=== PATIENT | female | born 2000 | race Caucasian/White ===

== ENCOUNTER 2021-08-18 06:33 | Emergency (ER) | payer MEDICAID ==
[2021-08-18] MEDS ORDERED: Ketorolac 30 MG/ML SDV IM ONE (07:19)
[2021-08-18] MEDS ORDERED: predniSONE 20 MG Tab PO ONE (07:19)
[2021-08-18] MEDS ORDERED: Sulfamethoxazole/Trimethoprim 800-160 MG Tab PO ONE (07:23)
--- NOTE | 2021-08-18 07:24 | EDM.PDOC ---
ED HPI GENERAL MEDICAL PROBLEM - General Stated Complaint: EARACHE Time Seen by Provider: 08/18/21 06:55 Source of Information: Reports: Patient History Limitations: Reports: No Limitations - History of Present Illness INITIAL COMMENTS - FREE TEXT/NARRATIVE: c/o L ear pain x 1w intermittent pain, then continuous pain for last 1-2 days not taken pain meds does not think she has allergies all does have nasal swell c/w chr allergic rhinitis denies rhinorrhea born 2m premature per mother who spoke with Mervat GONZÁLES h/o b/l tubes and freq OMs as child, no ear pain in past 2y PCP [facility] in [facility] where she is from college student, here with boyfriend - Related Data Allergies Allergy/AdvReac Type Severity Reaction Status Date / Time cefixime [From Suprax] Allergy Rash Verified 08/18/21 07:12 cefprozil [From Cefzil] Allergy Rash Verified 08/18/21 07:11 Home Meds: Home Meds .Melatonin 1 dose PO DAILY PRN 08/18/21 [History] FLUoxetine HCl [Fluoxetine HCl] 40 mg PO DAILY 08/18/21 [History] Loratadine 10 mg PO DAILY #30 tablet 08/18/21 [Rx] Sulfamethoxazole/Trimethoprim [Sulfamethoxazole-Tmp Ds Tablet] 1 each PO BID #14 tablet 08/18/21 [Rx] norgestimate-ethinyl estradioL [[place]-Linyah 28 Tablet] 1 each PO DAILY 08/18/21 [History] predniSONE 20 mg PO DAILY #6 tab 08/18/21 [Rx] ED ROS ENT - Review of Systems Review Of Systems: See Below Constitutional: Reports: No Symptoms HEENT: Reports: Ear Pain Respiratory: Reports: No Symptoms Endocrine: Reports: No Symptoms GI/Abdominal: Reports: No Symptoms : Reports: No Symptoms Musculoskeletal: Reports: No Symptoms Skin: Reports: No Symptoms Neurological: Reports: No Symptoms Psychiatric: Reports: No Symptoms Hematologic/Lymphatic: Reports: No Symptoms Immunologic: Reports: No Symptoms ED EXAM, ENT - Physical Exam Exam: See Below Exam Limited By: No Limitations General Appearance: Alert, WD/WN, No Apparent Distress Eye Exam: Bilateral Eye: Normal Inspection Ears: Other (R TM wnl, L TM partially obscured by soft wax in ear canal, normal pale color, mild bulge, no LNs, no pain with tug pinna/tragus on L) Nose: Other (30-40% swell turbinates b/l, no visible d/c, o-p neg) Mouth/Throat: Normal Inspection, Normal Gums, Normal Oropharynx Head: Atraumatic, Normocephalic Neck: Normal Inspection, Supple, Non-Tender, Full Range of Motion. No: Lymphadenopathy (L) Respiratory/Chest: No Respiratory Distress, Lungs Clear Cardiovascular: Regular Rate, Rhythm GI/Abdominal: Soft Extremities: Normal Inspection Neurological: Alert, Oriented, CN II-XII Intact, No Motor/Sensory Deficits Psychiatric: Normal Affect, Normal Mood Skin: Warm, Dry, Intact, Normal Color, No Rash Lymphatic: No Adenopathy Course - Vital Signs Last Recorded V/S: Last Vital Signs Temp 37.2 C 08/18/21 06:35 Pulse 65 08/18/21 06:35 Resp 18 08/18/21 06:35 BP 131/83 08/18/21 06:35 Pulse Ox 99 08/18/21 06:35 - Re-Assessments/Exams Free Text/Narrative Re-Assessment/Exam: 08/18/21 07:34 role of antbxs not clear as modest L ear effusion is not opaque and may be chronic should improve nicely with anti-inflammatories and steroids and antihistamines no evidence of perf should see PCP in 2w, may see ENT if desired Departure - Departure Time of Disposition: 07:18 Disposition: Home, Self-Care 01 Condition: Good Clinical Impression: Left otitis media with effusion, Chronic allergic rhinitis - Discharge Information *PRESCRIPTION DRUG MONITORING PROGRAM REVIEWED*: Not Applicable *COPY OF PRESCRIPTION DRUG MONITORING REPORT IN PATIENT TONNY: Not Applicable Prescriptions: Loratadine 10 mg PO DAILY #30 tablet predniSONE 20 mg PO DAILY #6 tab Sulfamethoxazole/Trimethoprim [Sulfamethoxazole-Tmp Ds Tablet] 1 each PO BID #14 tablet Instructions: Otitis Media, Adult, Allergic Rhinitis, Adult Additional Instructions: For infection, take sulfa antibiotic 2 times a day for 7 days. For swelling and allergies (which is keeping the Eustachion tube from adequately draining the middle ear to the back of the throat), take prednisone 20 mg daily for 6 days beginning tomorrow. For swelling and allergies, take loratadine 10 mg 1 tab daily for 1-2 months, until the first freeze. For pain, take ibuprofen 200 mg 4 tabs 3 times a day. See your doctor in 2 weeks, earlier if your symptoms persist. Sepsis Event Note (ED) - Focused Exam Vital Signs: Vital Signs Temp Pulse Resp BP Pulse Ox 08/18/21 06:35 37.2 C 65 18 131/83 99
== END 2021-08-18 07:45 | disposition home or self-care (01) ==
LOC: FB.ED 06:33
DX: H65.92 Unspecified nonsuppurative otitis media, left ear (principal); J30.9 Allergic rhinitis, unspecified; Z88.8 Allergy status to other drugs, medicaments and biological substances; Z79.899 Other long term (current) drug therapy
CPT/HCPCS: 96372; 99282; A9270; J1885; J7512

== ENCOUNTER 2021-08-25 21:49 | Emergency (ER) | payer MEDICAID ==
[2021-08-25] MEDS ORDERED: Ibuprofen 600 MG Tab PO ONE (22:25)
--- NOTE | 2021-08-25 22:34 | EDM.PDOC ---
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 The injury was 5 hrs ago. No tx prior to arrival. 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) R ankle Pain Score (Numeric/FACES): 10 - Related Data Allergies Allergy/AdvReac Type Severity Reaction Status Date / Time cefixime [From Suprax] Allergy Rash Verified 08/25/21 22:01 cefprozil [From Cefzil] Allergy Rash Verified 08/25/21 22:01 Home Meds: Home Meds .Melatonin 1 dose PO DAILY PRN 08/18/21 [History] FLUoxetine HCl [Fluoxetine HCl] 40 mg PO DAILY 08/18/21 [History] Loratadine 10 mg PO DAILY #30 tablet 08/18/21 [Rx] Sulfamethoxazole/Trimethoprim [Sulfamethoxazole-Tmp Ds Tablet] 1 each PO BID #14 tablet 08/18/21 [Rx] norgestimate-ethinyl estradioL [[place]-Linyah 28 Tablet] 1 each PO DAILY 08/18/21 [History] predniSONE 20 mg PO DAILY #6 tab 08/18/21 [Rx] Ibuprofen 600 mg PO QID PRN #12 tablet 08/25/21 [Rx] Past Medical History HEENT History: Reports: Other (See Below) Other HEENT History: History of left PE tubes, perforations, and infections. Respiratory History: Reports: Asthma Review of Systems - Review of Systems Review Of Systems: See Below Constitutional: Reports: No Symptoms Musculoskeletal: Reports: Joint Pain (R ankle) Skin: Reports: No Symptoms Neurological: Reports: No Symptoms ED EXAM, GENERAL - Physical Exam Exam: See Below Exam Limited By: No Limitations General Appearance: Alert, WD/WN, No Apparent Distress Extremities: Normal Inspection, Normal Range of Motion, No Pedal Edema, Other (Tender lateraly, no ligamentous laxity. No lateral foot pain. No medial joint pain. ). No: Non-Tender, Pedal Edema, Joint Swelling, Limited Range of Motion, Increased Warmth Neurological: Alert, Oriented, CN II-XII Intact, Normal Cognition, No Motor/Sensory Deficits Course - Vital Signs Last Recorded V/S: Last Vital Signs Temp 37.1 C 08/25/21 21:58 Pulse 87 08/25/21 21:58 Resp 18 08/25/21 21:58 BP 129/83 08/25/21 21:58 Pulse Ox 99 08/25/21 21:58 - Orders/Labs/Meds Meds: Medications Discontinued Medications Generic Name Dose Route Start Last Admin Trade Name Niki PRN Reason Stop Dose Admin Ibuprofen 600 mg 08/25/21 22:25 Ibuprofen 600 Mg Tab PO 08/25/21 22:26 ONETIME ONE Departure - Departure Time of Disposition: 22:40 Disposition: Home, Self-Care 01 Condition: Good Clinical Impression: Right ankle sprain Qualifiers: Encounter type: initial encounter Involved ligament of ankle: anterior talofibular ligament Qualified Code(s): S93.491A - Sprain of other ligament of right ankle, initial encounter - Discharge Information *PRESCRIPTION DRUG MONITORING PROGRAM REVIEWED*: Not Applicable *COPY OF PRESCRIPTION DRUG MONITORING REPORT IN PATIENT TONNY: Not Applicable Instructions: Ankle Sprain Additional Instructions: Use the stirrup splint with a low top, lace up shoe with a low heel whenever you are needing to walk. Elevate to reduce swelling. Ice tonight before bed. Take ibuprofen and if needed acetaminophen for pain relief. Recheck with your doctor if not better in a week. Sepsis Event Note (ED) - Evaluation Sepsis Screening Result: No Definite Risk - Focused Exam Vital Signs: Vital Signs Temp Pulse Resp BP Pulse Ox 08/25/21 21:58 37.1 C 87 18 129/83 99
== END 2021-08-25 23:14 | disposition home or self-care (01) ==
LOC: FB.ED 21:49
DX: S93.491A Sprain of other ligament of right ankle, initial encounter (principal); J45.909 Unspecified asthma, uncomplicated; Z88.1 Allergy status to other antibiotic agents; Z79.899 Other long term (current) drug therapy; X50.1XXA Overexertion from prolonged static or awkward postures, initial encounter; Y93.39 Activity, other involving climbing, rappelling and jumping off; Y92.512 Supermarket, store or market as the place of occurrence of the external cause
CPT/HCPCS: 99283; A9270

== ENCOUNTER 2021-09-13 13:07 | Emergency (ER) | payer MEDICAID ==
--- NOTE | 2021-09-13 14:35 | EDM.PDOC ---
ED HPI GENERAL MEDICAL PROBLEM - General Chief Complaint: RN ADVANCED Problem Stated Complaint: PELVIC PAIN Time Seen by Provider: 09/13/21 14:30 Source of Information: Reports: Patient History Limitations: Reports: No Limitations - History of Present Illness INITIAL COMMENTS - FREE TEXT/NARRATIVE: states she is having pain in the vaginal area, dull ache sometimes burning , with urination no vaginal discharge , no suprapubic pain , no flank pain Had sexual intercourse 3 days prior Onset: Today Duration: Getting Worse Location: Reports: Pelvis Quality: Reports: Ache, Dull Improves with: Reports: None Worsens with: Reports: None Associated Symptoms: Reports: No Other Symptoms 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 Vaginal Pain Score (Numeric/FACES): 10 - Related Data Allergies Allergy/AdvReac Type Severity Reaction Status Date / Time cefixime [From Suprax] Allergy Rash Verified 08/25/21 22:01 cefprozil [From Cefzil] Allergy Rash Verified 08/25/21 22:01 Home Meds: Home Meds .Melatonin 1 dose PO DAILY PRN 08/18/21 [History] FLUoxetine HCl [Fluoxetine HCl] 40 mg PO DAILY 08/18/21 [History] Loratadine 10 mg PO DAILY #30 tablet 08/18/21 [Rx] Sulfamethoxazole/Trimethoprim [Sulfamethoxazole-Tmp Ds Tablet] 1 each PO BID #14 tablet 08/18/21 [Rx] norgestimate-ethinyl estradioL [[place]-Linyah 28 Tablet] 1 each PO DAILY 08/18/21 [History] predniSONE 20 mg PO DAILY #6 tab 08/18/21 [Rx] Ibuprofen 600 mg PO QID PRN #12 tablet 08/25/21 [Rx] Ciprofloxacin HCl [Cipro] 500 mg PO BID #10 tablet 09/13/21 [Rx] Past Medical History HEENT History: Reports: Otitis Media, Other (See Below) Other HEENT History: History of left PE tubes, perforations, and infections. Respiratory History: Reports: Asthma Musculoskeletal History: Reports: Fracture Other Musculoskeletal History: hx fx R thumb Psychiatric History: Reports: Anxiety, Depression - Infectious Disease History Infectious Disease History: Reports: Chicken Pox - Past Surgical History HEENT Surgical History: Reports: Myringotomy w Tube(s) Other HEENT Surgeries/Procedures: bilat tubes Social & Family History - Family History Family Medical History: No Pertinent Family History - Tobacco Use Tobacco Use Status *Q: Current Every Day Tobacco User Years of Tobacco use: 4 Packs/Tins Daily: 1 - Caffeine Use Caffeine Use: Reports: Soda - Recreational Drug Use Recreational Drug Use: Yes Drug Use in Last 12 Months: Yes Recreational Drug Type: Reports: Marijuana/Hashish Recreational Drug Use Frequency: Socially ED ROS GENERAL - Review of Systems Review Of Systems: Comprehensive ROS is negative, except as noted in HPI. ED EXAM, RENAL/ - Physical Exam Exam: See Below Exam Limited By: No Limitations General Appearance: Alert, WD/WN, No Apparent Distress, Anxious Eye Exam: Bilateral Eye: EOMI Ears: Hearing Grossly Normal Nose: Normal Inspection Throat/Mouth: Normal Oropharynx Head: Atraumatic, Normocephalic Neck: Supple, Non-Tender Respiratory/Chest: Lungs Clear Cardiovascular: Regular Rate, Rhythm GI/Abdominal: Soft, Non-Tender (Female) Exam: Deferred. No: Vaginal Bleeding, Vaginal Discharge Back Exam: Full Range of Motion Extremities: Normal Inspection Neurological: Alert, Oriented, CN II-XII Intact Psychiatric: Normal Affect, Normal Mood Skin Exam: Warm, Dry, Intact Course - Vital Signs Last Recorded V/S: Last Vital Signs Temp 36.6 C 09/13/21 13:31 Pulse 79 09/13/21 13:31 Resp 18 09/13/21 13:31 BP 114/70 09/13/21 13:31 Pulse Ox 97 09/13/21 13:31 - Orders/Labs/Meds Orders: Active Orders 24 hr Category Date Time Status CHLAMYDIA/GC AMPLIFICATION Stat Lab 09/13/21 14:36 Received CULTURE URINE [RM] Stat Lab 09/13/21 14:36 Received Labs: Laboratory Tests 09/13/21 Range/Units 14:36 Urine Color Yellow (YELLOW) Urine Appearance Slightly cloudy (CLEAR) Urine pH 8.0 H (5.0-6.5) Ur Specific [place] 1.010 (1.010-1.025) Urine Protein Negative (NEGATIVE) mg/dL Urine Glucose (UA) Normal (NORMAL) mg/dL Urine Ketones Negative (NEGATIVE) mg/dL Urine Occult Blood Negative (NEGATIVE) Urine Nitrite Negative (NEGATIVE) Urine Bilirubin Negative (NEGATIVE) Urine Urobilinogen Normal (NEGATIVE) mg/dL Ur Leukocyte Esterase Large H (NEGATIVE) Urine RBC 0-5 (0-5) Urine WBC 75-100 H (0-5) Ur Squamous Epith Cells Few H (NS,R,O) Urine Bacteria Many H (NS) Meds: Medications Discontinued Medications Generic Name Dose Route Start Last Admin Trade Name Niki PRN Reason Stop Dose Admin Azithromycin 1,000 mg 09/13/21 14:52 09/13/21 15:07 Azithromycin 250 Mg Tab PO 09/13/21 14:53 1,000 mg ONETIME ONE Administration Doxycycline Hyclate 200 mg 09/13/21 14:53 09/13/21 15:07 Doxycycline 100 Mg Tab PO 09/13/21 14:54 200 mg ONETIME ONE Administration - Re-Assessments/Exams Free Text/Narrative Re-Assessment/Exam: 09/13/21 15:00 pt remained stable had UA done , screen for Std done also Departure - Departure Time of Disposition: 15:23 Disposition: Home, Self-Care 01 Condition: Good Clinical Impression: UTI (urinary tract infection), Exposure to STD - Discharge Information *PRESCRIPTION DRUG MONITORING PROGRAM REVIEWED*: Not Applicable *COPY OF PRESCRIPTION DRUG MONITORING REPORT IN PATIENT TONNY: Not Applicable Prescriptions: Ciprofloxacin HCl [Cipro] 500 mg PO BID #10 tablet Instructions: Urinary Tract Infection, Adult, [id number] Referrals: PCP,Not In Area [Primary Care Provider] - Forms: ED Department Discharge Additional Instructions: Activity as tolerated Taking medications as prescribed Increase fluids Sepsis Event Note (ED) - Evaluation Sepsis Screening Result: No Definite Risk - Focused Exam Vital Signs: Vital Signs Temp Pulse Resp BP Pulse Ox 09/13/21 13:31 36.6 C 79 18 114/70 97 - My Orders Last 24 Hours: My Active Orders 09/13/21 14:36 CHLAMYDIA/GC AMPLIFICATION Stat CULTURE URINE [RM] Stat - Assessment/Plan Last 24 Hours: My Active Orders 09/13/21 14:36 CHLAMYDIA/GC AMPLIFICATION Stat CULTURE URINE [RM] Stat
[2021-09-13] MEDS ORDERED: Azithromycin 250 MG Tab PO ONE (14:52)
[2021-09-13] MEDS ORDERED: Doxycycline 100 MG Tab PO ONE (14:53)
[2021-09-18 05:12] LABS: CHLAMYDIA TRACHOMATIS, NAA Negative (Negative); NEISSERIA GONORRHOEAE, NAA Negative (Negative)
== END 2021-09-13 15:20 | disposition home or self-care (01) ==
LOC: FB.ED 13:07
DX: N39.0 Urinary tract infection, site not specified (principal); J45.909 Unspecified asthma, uncomplicated; Z20.2 Contact with and (suspected) exposure to infections with a predominantly sexual mode of transmission; Z72.0 Tobacco use; Z88.1 Allergy status to other antibiotic agents; Z79.899 Other long term (current) drug therapy
CPT/HCPCS: 81001; 87086; 87088; 87186; 87491; 87591; 99284; A9270

== ENCOUNTER 2021-11-09 00:57 | Emergency (ER) | payer MEDICAID ==
[2021-11-09] MEDS ORDERED: Lidocaine 2% Viscous Solution 15 ML Cup PO ONE (01:19)
--- NOTE | 2021-11-09 02:01 | EDM.PDOC ---
ED HPI GENERAL MEDICAL PROBLEM - General Chief Complaint: General Stated Complaint: TOOTH PAIN Time Seen by Provider: 11/09/21 01:10 Source of Information: Reports: Patient History Limitations: Reports: No Limitations - History of Present Illness INITIAL COMMENTS - FREE TEXT/NARRATIVE: Patient presented to the ED because of dental pain which started at 1245. She took aspirin which brought the pain down. - Related Data Allergies Allergy/AdvReac Type Severity Reaction Status Date / Time cefixime [From Suprax] Allergy Rash Verified 11/09/21 01:55 cefprozil [From Cefzil] Allergy Rash Verified 11/09/21 01:55 Home Meds: Home Meds .Melatonin 1 dose PO DAILY PRN 08/18/21 [History] FLUoxetine HCl [Fluoxetine HCl] 40 mg PO DAILY 08/18/21 [History] Loratadine 10 mg PO DAILY #30 tablet 08/18/21 [Rx] Sulfamethoxazole/Trimethoprim [Sulfamethoxazole-Tmp Ds Tablet] 1 each PO BID #14 tablet 08/18/21 [Rx] norgestimate-ethinyl estradioL [[place]-Linyah 28 Tablet] 1 each PO DAILY 08/18/21 [History] predniSONE 20 mg PO DAILY #6 tab 08/18/21 [Rx] Ibuprofen 600 mg PO QID PRN #12 tablet 08/25/21 [Rx] Ciprofloxacin HCl [Cipro] 500 mg PO BID #10 tablet 09/13/21 [Rx] Past Medical History HEENT History: Reports: Otitis Media, Other (See Below) Other HEENT History: History of left PE tubes, perforations, and infections. Respiratory History: Reports: Asthma Musculoskeletal History: Reports: Fracture Other Musculoskeletal History: Fracture right thumb. Right sprained ankle. Psychiatric History: Reports: Anxiety, Depression Dermatologic History: Reports: Other (See Below) Other Dermatologic History: Glass cuts on back following tractor accident. - Infectious Disease History Infectious Disease History: Reports: Chicken Pox - Past Surgical History HEENT Surgical History: Reports: Myringotomy w Tube(s) Social & Family History - Family History Family Medical History: No Pertinent Family History - Tobacco Use Tobacco Use Status *Q: Current Every Day Tobacco User Years of Tobacco use: 1 Packs/Tins Daily: 1 - Caffeine Use Caffeine Use: Reports: Soda ED ROS GENERAL - Review of Systems Review Of Systems: See Below Constitutional: Reports: No Symptoms HEENT: Reports: No Symptoms Respiratory: Reports: No Symptoms Cardiovascular: Reports: No Symptoms Endocrine: Reports: No Symptoms GI/Abdominal: Reports: No Symptoms : Reports: No Symptoms Musculoskeletal: Reports: No Symptoms Skin: Reports: No Symptoms Neurological: Reports: No Symptoms Psychiatric: Reports: No Symptoms Hematologic/Lymphatic: Reports: No Symptoms ED EXAM, GENERAL - Physical Exam Exam: See Below Exam Limited By: No Limitations General Appearance: Alert, No Apparent Distress Ears: Normal External Exam, Normal Canal Nose: Normal Inspection, Normal Mucosa, No Blood Throat/Mouth: Normal Inspection, Other (multiple dental caries) Head: Atraumatic, Normocephalic Neck: Normal Inspection, Supple, Non-Tender, Full Range of Motion Respiratory/Chest: No Respiratory Distress, Lungs Clear, Normal Breath Sounds, No Accessory Muscle Use, Chest Non-Tender Cardiovascular: Normal Peripheral Pulses, Regular Rate, Rhythm, No Edema GI/Abdominal: Normal Bowel Sounds, Soft, Non-Tender, No Organomegaly, No Distention, No Abnormal Bruit, No Mass Back Exam: Normal Inspection, Full Range of Motion Extremities: Normal Inspection, Normal Range of Motion, Non-Tender, No Pedal Edema, Normal Capillary Refill Neurological: Alert, Oriented, CN II-XII Intact, Normal Cognition, Normal Reflexes, No Motor/Sensory Deficits Psychiatric: Normal Affect Course - Vital Signs Text/Narrative:: Viscous lidocaine applied to left lower tooth Last Recorded V/S: Last Vital Signs Temp 37.1 C 11/09/21 01:05 Pulse 86 11/09/21 01:05 Resp 18 11/09/21 01:05 BP 135/82 11/09/21 01:05 Pulse Ox 96 11/09/21 01:05 - Orders/Labs/Meds Meds: Medications Discontinued Medications Generic Name Dose Route Start Last Admin Trade Name Parishq PRN Reason Stop Dose Admin Lidocaine HCl 15 ml 11/09/21 01:19 11/09/21 01:24 Lidocaine 2% Viscous Solution 15 Ml Cup PO 11/09/21 01:20 15 ml ONETIME ONE Administration Departure - Departure Time of Disposition: 02:00 Disposition: Home, Self-Care 01 Condition: Good Clinical Impression: Pain, dental - Discharge Information Instructions: Dental Pain, [id number] Referrals: PCP,None [Primary Care Provider] - Forms: ED Department Discharge Additional Instructions: please read discharge instructions on dental pain take ibuprofen 800 mg with tylenol 1000 mg every 8 hours as needed for pain follow up with your dentist this coming week Sepsis Event Note (ED) - Evaluation Sepsis Screening Result: No Definite Risk - Focused Exam Vital Signs: Vital Signs Temp Pulse Resp BP Pulse Ox 11/09/21 01:05 37.1 C 86 18 135/82 96
== END 2021-11-09 02:20 | disposition home or self-care (01) ==
LOC: FB.ED 00:57
DX: K08.89 Other specified disorders of teeth and supporting structures (principal); F17.210 Nicotine dependence, cigarettes, uncomplicated; Z88.8 Allergy status to other drugs, medicaments and biological substances; Z79.899 Other long term (current) drug therapy
CPT/HCPCS: 99282; A9270

== ENCOUNTER 2021-11-12 02:56 | Emergency (ER) | payer MEDICAID ==
[2021-11-12] MEDS ORDERED: Acetaminophen/HYDROcodone 325-5 MG Tab PO ONE ×2 (02:57→03:43)
--- NOTE | 2021-11-12 03:23 | EDM.PDOC ---
ED HPI GENERAL MEDICAL PROBLEM - General Chief Complaint: General Stated Complaint: TOOTH PAIN Time Seen by Provider: 11/12/21 03:17 Source of Information: Reports: Patient History Limitations: Reports: No Limitations - History of Present Illness INITIAL COMMENTS - FREE TEXT/NARRATIVE: 21-year-old female who developed pain in her left upper posterior tooth about 1 week ago. It is a sharp, throbbing and aching type pain. It has waxed and waned but seems to be worse tonight. Her pain is a 10/10 now. She was seen here 2 nights ago only by Dr. Bauer and given viscous lidocaine to apply to the area. She reports that has really not been helping with the pain and she has taken aspirin for the pain without relief. He is on no other medications. She is having no difficulty swallowing or breathing. No fevers or chills. No nausea or vomiting. No weakness or dizziness. She is here with her significant other. There are no other associated signs or symptoms. There are no other modifying factors. Onset: Other (One week ago) Duration: Constant (But with waxing and waning worsening.) Location: Reports: Face (Left upper, posterior dental pain) Quality: Reports: Ache, Sharp, Throbbing Severity: Severe Improves with: Reports: None Worsens with: Reports: Other (Hot and cold. Palpation. Chewing.) Context: Reports: Other (As above.) Associated Symptoms: Reports: No Other Symptoms (Except as above.) Treatments CARD PUNCHER: Reports: Aspirin - Related Data Allergies Allergy/AdvReac Type Severity Reaction Status Date / Time cefixime [From Suprax] Allergy Rash Verified 11/12/21 03:15 cefprozil [From Cefzil] Allergy Rash Verified 11/12/21 03:15 Home Meds: Home Meds FLUoxetine HCl [Fluoxetine HCl] 40 mg PO DAILY 08/18/21 [History] norgestimate-ethinyl estradioL [[place] 28 Tablet] 1 each PO DAILY 08/18/21 [History] Ibuprofen 600 mg PO Q6H PRN #40 tablet 11/12/21 [Rx] clindamycin HCL [Cleocin] 450 mg PO TID 7 Days #63 cap 11/12/21 [Rx] Past Medical History HEENT History: Reports: Otitis Media, Other (See Below) Other HEENT History: History of left PE tubes, perforations, and infections. Respiratory History: Reports: Asthma Musculoskeletal History: Reports: Fracture Other Musculoskeletal History: Fracture right thumb. Psychiatric History: Reports: Anxiety, Depression - Infectious Disease History Infectious Disease History: Reports: Chicken Pox - Past Surgical History HEENT Surgical History: Reports: Myringotomy w Tube(s) Social & Family History - Tobacco Use Tobacco Use Status *Q: Current Every Day Tobacco User Years of Tobacco use: 1 Packs/Tins Daily: 1 - Caffeine Use Caffeine Use: Reports: Soda - Alcohol Use Alcohol Use History: Yes Alcohol Use Frequency: Socially - Living Situation & Occupation Living situation: Reports: with Significant Other Occupation: Employed (Works at [employer] in [place].) ED ROS GENERAL - Review of Systems Review Of Systems: See Below Constitutional: Denies: Fever, Chills HEENT: Reports: Dental Pain. Denies: Ear Pain, Throat Pain Respiratory: Denies: Shortness of Breath, Cough Cardiovascular: Denies: Chest Pain, Palpitations GI/Abdominal: Denies: Nausea, Vomiting : Reports: Other (On control pills. Denies any possibility of .) Musculoskeletal: Denies: Neck Pain, Back Pain Skin: Denies: Diaphoresis, Rash Neurological: Denies: Dizziness, Headache Hematologic/Lymphatic: Denies: Easy Bleeding, Easy Bruising ED EXAM, GENERAL - Physical Exam Exam: See Below Exam Limited By: No Limitations General Appearance: Alert, WD/WN, Moderate Distress (Appears in acute pain.) Eye Exam: Bilateral Eye: EOMI, Normal Inspection (Sclera are anicteric.), PERRL Ears: Normal External Exam, Hearing Grossly Normal Ear Exam: Bilateral Ear: Auricle Normal Nose: Normal Inspection, Normal Mucosa, No Blood Throat/Mouth: Normal Voice, No Airway Compromise, Other (Some gingival erythema around the left upper posterior molar no pointing abscess.) Head: Atraumatic, Normocephalic, Facial Tenderness (Over left cheek area.). No: Facial Swelling Neck: Normal Inspection, Supple, Non-Tender, Full Range of Motion Respiratory/Chest: No Respiratory Distress, Lungs Clear, Normal Breath Sounds, No Accessory Muscle Use, Chest Non-Tender Cardiovascular: Normal Peripheral Pulses, Regular Rate, Rhythm, No JVD Peripheral Pulses: 2+: Radial (L), Radial (R) GI/Abdominal: Normal Bowel Sounds, Soft, Non-Tender Back Exam: Normal Inspection Extremities: Normal Inspection, Normal Range of Motion, Non-Tender, No Pedal Edema, Normal Capillary Refill Neurological: Alert, Oriented, CN II-XII Intact, Normal Cognition, No Motor/Sensory Deficits Psychiatric: Normal Affect Skin Exam: Warm, Dry, Intact, Normal Color, No Rash Course - Vital Signs Last Recorded V/S: Last Vital Signs Temp 36.2 C 11/12/21 03:10 Pulse 75 11/12/21 03:10 Resp 18 11/12/21 03:10 BP 135/91 H 11/12/21 03:10 Pulse Ox 98 11/12/21 03:10 - Orders/Labs/Meds Meds: Medications Discontinued Medications Generic Name Dose Route Start Last Admin Trade Name Niki PRN Reason Stop Dose Admin Hydrocodone Bitart/Acetaminophen 2 tab 11/12/21 03:43 11/12/21 03:48 Acetaminophen/Hydrocodone 325-5 Mg Tab PO 11/12/21 03:44 2 tab ONETIME ONE Administration Clindamycin HCl 450 mg 11/12/21 03:40 11/12/21 03:48 Clindamycin Hcl 150 Mg Cap PO 11/12/21 03:41 450 mg ONETIME ONE Administration Ibuprofen 800 mg 11/12/21 03:40 11/12/21 03:48 Ibuprofen 800 Mg Tab PO 11/12/21 03:41 800 mg ONETIME ONE Administration - Re-Assessments/Exams Free Text/Narrative Re-Assessment/Exam: 11/12/21 03:40: Patient with left upper dental pain. There is likely a dental infection associated with this tooth. I have given the patient clindamycin 450 mg orally now and will send a prescription for the same. She was also given hydrocodone 5/325 to those by mouth and ibuprofen 800 mg by mouth. I did review the patient to the [facility] website and for all surrounding states and she has had no narcotic prescriptions over the past year area I will also send home with the patient a take home pack of hydrocodone 5/325. I have stressed to the patient that we would not be available to provide her with any further pain medications for this problem and that she needs to see a dentist as soon as she can arrange. I have also stressed that she should take probiotics while she is on the antibiotics or eat yogurt daily. Precautions and reasons to return to the emergency department were discussed with the patient while she was in the emergency department and were detailed in the patient's discharge instructions. Departure - Departure Time of Disposition: 03:50 Disposition: Home, Self-Care 01 Condition: Good (Stable) Clinical Impression: Dental infection, Pain, dental, Dental caries - Discharge Information *PRESCRIPTION DRUG MONITORING PROGRAM REVIEWED*: Yes (Patient had no narcotic prescriptions over the past year) *COPY OF PRESCRIPTION DRUG MONITORING REPORT IN PATIENT TONNY: No Prescriptions: clindamycin HCL [Cleocin] 450 mg PO TID 7 Days #63 cap Ibuprofen 600 mg PO Q6H PRN #40 tablet PRN Reason: Pain Referrals: PCP,None [Primary Care Provider] - Forms: ED Department Discharge Additional Instructions: You most probably have an infection in the left upper tooth that is causing him pain now. I am placing you on antibiotics treat this infection (clindamycin). You a take home pack of hydrocodone 5/325. You should take this form moderate to severe pain as needed. A prescription for ibuprofen 600 mg was set to your pharmacy as well as the above clindamycin. You should use the ibuprofen as needed for pain. You'll need to see a dentist as soon as you can arrange. He should also take probiotics or eat yogurt daily while you are on the antibiotics. We would not be able to provide you with any further pain medications for this problem. Back to the emergency department for trouble swallowing, unrelenting vomiting, spreading redness or swelling across your face or any other concerning signs or symptoms. Sepsis Event Note (ED) - Evaluation Sepsis Screening Result: No Definite Risk - Focused Exam Vital Signs: Vital Signs Temp Pulse Resp BP Pulse Ox 11/12/21 03:10 36.2 C 75 18 135/91 H 98
[2021-11-12] MEDS ORDERED: Clindamycin HCl 150 MG Cap PO ONE (03:40)
[2021-11-12] MEDS ORDERED: Ibuprofen 800 MG Tab PO ONE (03:40)
== END 2021-11-12 04:05 | disposition home or self-care (01) ==
LOC: FB.ED 02:56
DX: K04.7 Periapical abscess without sinus (principal); K02.9 Dental caries, unspecified; J45.909 Unspecified asthma, uncomplicated; Z72.0 Tobacco use; Z88.1 Allergy status to other antibiotic agents; Z79.899 Other long term (current) drug therapy
CPT/HCPCS: 99282; A9270-GY

== ENCOUNTER 2025-10-26 02:21 | Emergency (ER) | payer SELFPAY | END 2025-10-26 04:18 | disposition home or self-care (01) | LOC: FB.ED 02:21 → SUPCPDRO 02:21 → FB.ED 04:18 | DX: S63.502A Unspecified sprain of left wrist, initial encounter (principal); S60.212A Contusion of left wrist, initial encounter; F17.200 Nicotine dependence, unspecified, uncomplicated; Z88.8 Allergy status to other drugs, medicaments and biological substances; Z79.899 Other long term (current) drug therapy; W22.8XXA Striking against or struck by other objects, initial encounter | CPT/HCPCS: 73110-LT; 99283; A9270-GY ==